=== PATIENT | female | born 2000 | race African-American/Black ===

== ENCOUNTER 2022-09-24 | Emergency (ER) | payer SELFPAY ==
[2022-09-24] MEDS ORDERED: Benzonatate 100 MG CAP ONE (00:42)
[2022-09-24] MEDS ORDERED: Ibuprofen 200 MG TAB ONE (00:43)
== END 2022-09-24 02:40 | disposition home or self-care (01) ==
LOC: CSHERS
DX: J06.9 Acute upper respiratory infection, unspecified (principal); F17.210 Nicotine dependence, cigarettes, uncomplicated; Z20.822 Contact with and (suspected) exposure to COVID-19
CPT/HCPCS: 99283; U0003; U0005